=== PATIENT | female | born 1985 | race African-American/Black ===

== ENCOUNTER 2018-12-10 12:19 | Emergency (ER) | payer OTHER ==
[~2018-12-10] VITALS: Ht 172.7 cm; Wt 75.0 kg
[2018-12-10 13:10] VITALS: BP 130/85
== END 2018-12-10 15:23 | disposition home or self-care (01) ==
LOC: ER 12:19
DX: J06.9 Acute upper respiratory infection, unspecified (principal); F12.10 Cannabis abuse, uncomplicated; F19.20 Other psychoactive substance dependence, uncomplicated; F17.200 Nicotine dependence, unspecified, uncomplicated
CPT/HCPCS: 99283; 99406